=== PATIENT | female | born 1995 | race Caucasian/White ===

== ENCOUNTER 2017-11-26 11:24 | Emergency (ER) | payer BC ==
[2017-11-26 11:35] VITALS: RESP 16; O2SAT 98
--- NOTE | 2017-11-26 13:20 | EDPHY ---
H & P Stated Complaint: l lower abd/pelvic since started menstruation 3 days ago Time Seen by Provider: 11/26/17 13:20 HPI/ROS: HPI: This is a 22-year-old female who presents with Chief Complaint: l lower abd/pelvic since started menstruation 3 days ago Location: Suprapubic and left lower quadrant Quality: Cramping Pain Duration: 3 days Signs and Symptoms: no fever, no nausea, no vomiting, no hematemesis, no blood in stool, no abdominal bloating, no diarrhea, no back pain, no urinary symptoms , no vaginal discharge, no indigestion, no chest pain, no shortness of breath Timing: Acute, intermittent episodes Severity: Moderate to severe Context: Patient reports that she is currently menstruating, started approximately 3 days ago complains of menstrual cramping more prominent on the left side that is not relieved with ibuprofen, Tylenol. Heating pad does provide some mild relief. She takes oral control pills. Menses occurs every 28 days and approximate last 5 days. She reports that she is changing her pad every 3 hr and denies excessive blood flow. She denies chest pain/ shortness of breath/dizziness. She has not seen a OBGYN in over a year. No history of ovarian torsion/fibroids/ovarian cyst. Modifying Factors: See above Comment: ROS: see HPI Constitutional: No fever, no chills, no weight loss Eyes: No blurred vision Respiratory: No shortness of breath, no cough Cardiovascular: No chest pain, no palpitations Gastrointestinal: No nausea, no vomiting, no diarrhea, no hematemesis, no blood in stool Genitourinary: No dysuria, no blood in urine Extremities: No myalgias, no edema Neurologic: No weakness, no numbness Skin: No rashes, no petechiae Hematologic: No bruising, no bleeding MEDICAL/SURGICAL/SOCIAL HISTORY: Medical history: Generally healthy. Does not take any regular medications. Surgical history: Denies Social history: Student. CONSTITUTIONAL: Well-developed well-nourished young adult female who is nontoxic in appearance, awake and alert, no obvious distress HEENT: Atraumatic and normocephalic, PERRL, EOMI. Tympanic membranes clear. Oropharynx clear, no exudate and moist pink mucosa. Airway patent. No lymphadenopathy. No meningismus. Cardiovascular: Normal S1/S2, regular rate, regular rhythm, without murmur rub or gallop. PULMONARY/CHEST: Symmetrical and nontender. Clear to auscultation bilaterally. Good air movement. No accessory muscle usage. ABDOMEN: Soft, nondistended, left lower quadrant mild tenderness to deep palpation, no rebound, no guarding, no peritoneal signs, no masses or organomegaly. No CVAT. Normoactive bowel sounds heard x4. PELVIC: Deferred per patient as received ultrasound EXTREMITIES: 2/2 pulses, strength 5/5, no deformities, no clubbing, no cyanosis or edema. NEUROLOGICAL: no focal neuro deficits. GCS 15. SKIN: Warm and dry, no erythema. no rash. Good capillary refill. Source: Patient Exam Limitations: No limitations - Personal History LMP (Females 10-55): Now Current Tetanus/Diphtheria Vaccine: Yes - Medical/Surgical History Hx Asthma: No Hx Chronic Respiratory Disease: No Hx Diabetes: No Hx Cardiac Disease: No Hx Renal Disease: No Hx Cirrhosis: No Hx Alcoholism: No Hx HIV/AIDS: No Hx Splenectomy or Spleen Trauma: No Other PMH: denies - Social History Smoking Status: Current some day smoker Constitutional: Initial Vital Signs Temperature (C) 36.5 C 11/26/17 11:32 Heart Rate 74 11/26/17 11:32 Respiratory Rate 16 11/26/17 11:32 Blood Pressure 125/83 H 11/26/17 11:32 O2 Sat (%) 98 11/26/17 11:32 O2 Delivery Mode Room Air Allergies/Adverse Reactions: Penicillins Allergy (Verified 11/26/17 11:31) Home Medications: Medication Instructions Recorded Cyclobenzaprine [Flexeril 10 MG 10 mg PO TID PRN #15 tab 11/26/17 (*)] Protonix 11/26/17 Zantac 11/26/17 Medical Decision Making - Diagnostics Imaging Results: Imaging Impressions Pelvic/Renal Ultrasound 11/26/17 13:43 Impression: 1. Normal ovaries. No evidence of torsion or ovarian cyst. 2. Normal uterus. Findings discussed with Emergency Department physician, Nikole Patel on 2017, 14:51. ED Course/Re-evaluation: Labs, IV fluids, IV medications, pelvic ultrasound ordered Labs reviewed and show no signs of anemia/electrolyte imbalance/leukocytosis/ transaminitis Urinalysis shows blood but no signs of infection. Given 1 L normal saline, IV Toradol, IV promethazine, and p.o. Flexeril with adequate relief Called by Radiology who advised: Normal ovaries. No evidence of torsion or ovarian cyst. Normal uterus. Reassessed patient: Abdomen soft and nontender. No concern for hemorrhage. Advised supportive care. OBGYN follow-up. This patient was seen under the supervision of my primary supervising physician. I evaluated care for this patient independently. Differential Diagnosis: Abdominal pain in a female including but not limited to ovarian cyst, pelvic inflammatory disease, ovarian torsion, urinary tract infection, and appendicitis. - Data Points Laboratory Results: Laboratory Results 11/26/17 13:10 11/26/17 13:10 11/26/17 11/26/17 11/26/17 13:10 13:10 13:10 WBC 9.79 10^3/uL H 10^3/uL (3.80-9.50) RBC 4.31 10^6/uL 10^6/uL (4.18-5.33) Hgb 14.2 g/dL g/dL (12.6-16.3) Hct 42.2 % % (38.0-47.0) MCV 97.9 fL fL (81.5-99.8) MCH 32.9 pg pg (27.9-34.1) MCHC 33.6 g/dL g/dL (32.4-36.7) RDW 12.4 % % (11.5-15.2) Plt Count 253 10^3/uL 10^3/uL (150-400) MPV 10.7 fL fL (8.7-11.7) Neut % (Auto) 71.1 % % (39.3-74.2) Lymph % (Auto) 21.1 % % (15.0-45.0) Burnett % (Auto) 6.4 % % (4.5-13.0) Eos % (Auto) 0.8 % % (0.6-7.6) Baso % (Auto) 0.4 % % (0.3-1.7) Nucleat RBC Rel Count 0.0 % % (0.0-0.2) Absolute Neuts (auto) 6.95 10^3/uL H 10^3/uL (1.70-6.50) Absolute Lymphs (auto) 2.07 10^3/uL 10^3/uL (1.00-3.00) Absolute Monos (auto) 0.63 10^3/uL 10^3/uL (0.30-0.80) Absolute Eos (auto) 0.08 10^3/uL 10^3/uL (0.03-0.40) Absolute Basos (auto) 0.04 10^3/uL 10^3/uL (0.02-0.10) Absolute Nucleated RBC 0.00 10^3/uL 10^3/uL (0-0.01) Immature Gran % 0.2 % % (0.0-1.1) Immature Gran # 0.02 10^3/uL 10^3/uL (0.00-0.10) Sodium 142 mEq/L mEq/L (135-145) Potassium 4.0 mEq/L mEq/L (3.5-5.2) Chloride 106 mEq/L mEq/L (97-110) Carbon Dioxide 21 mEq/l L mEq/l (22-31) Anion Gap 15 mEq/L mEq/L (8-16) BUN 10 mg/dL mg/dL (7-23) Creatinine 0.7 mg/dL mg/dL (0.6-1.0) Estimated GFR > 60 Glucose 80 mg/dL mg/dL (70-100) Calcium 9.7 mg/dL mg/dL (8.5-10.4) Total Bilirubin 0.7 mg/dL mg/dL (0.1-1.4) Conjugated Bilirubin 0.3 mg/dL mg/dL (0.0-0.5) Unconjugated Bilirubin 0.4 mg/dL mg/dL (0.0-1.1) AST 26 IU/L IU/L (14-46) ALT 35 IU/L IU/L (9-52) Alkaline Phosphatase 91 IU/L IU/L (38-126) Total Protein 8.3 g/dL H g/dL (6.3-8.2) Albumin 4.7 g/dL g/dL (3.5-5.0) Lipase 107 IU/L IU/L (23-300) Beta HCG, Qual NEGATIVE Urine Color Urine Appearance Urine pH Ur Specific Horatio Urine Protein Urine Ketones Urine Blood Urine Nitrate Urine Bilirubin Urine Urobilinogen Ur Leukocyte Esterase Urine RBC Urine WBC Ur Epithelial Cells Urine Mucus Urine Glucose Urine Test 11/26/17 11/26/17 11:35 11:35 WBC RBC Hgb Hct MCV MCH MCHC RDW Plt Count MPV Neut % (Auto) Lymph % (Auto) Burnett % (Auto) Eos % (Auto) Baso % (Auto) Nucleat RBC Rel Count Absolute Neuts (auto) Absolute Lymphs (auto) Absolute Monos (auto) Absolute Eos (auto) Absolute Basos (auto) Absolute Nucleated RBC Immature Gran % Immature Gran # Sodium Potassium Chloride Carbon Dioxide Anion Gap BUN Creatinine Estimated GFR Glucose Calcium Total Bilirubin Conjugated Bilirubin Unconjugated Bilirubin AST ALT Alkaline Phosphatase Total Protein Albumin Lipase Beta HCG, Qual Urine Color YELLOW Urine Appearance CLEAR Urine pH 9.0 H (5.0-7.5) Ur Specific Horatio 1.016 (1.002-1.030) Urine Protein NEGATIVE (NEGATIVE) Urine Ketones TRACE H (NEGATIVE) Urine Blood 1+ H (NEGATIVE) Urine Nitrate NEGATIVE (NEGATIVE) Urine Bilirubin NEGATIVE (NEGATIVE) Urine Urobilinogen NEGATIVE EU EU (0.2-1.0) Ur Leukocyte Esterase NEGATIVE (NEGATIVE) Urine RBC 1-3 /hpf /hpf (0-3) Urine WBC NONE SEEN /hpf /hpf (0-3) Ur Epithelial Cells TRACE /lpf /lpf (NONE-1+) Urine Mucus 1+ /lpf /lpf (NONE-1+) Urine Glucose NEGATIVE (NEGATIVE) Urine Test NEGATIVE Medications Given: Discontinued Medications Cyclobenzaprine HCl (Flexeril) 10 mg PO EDNOW ONE Stop: 11/26/17 14:24 Last Admin: 11/26/17 14:35 Dose: 10 mg Sodium Chloride (Ns) 1,000 mls @ 0 mls/hr IV EDNOW ONE; Wide Open PRN Reason: Protocol Stop: 11/26/17 13:43 Last Admin: 11/26/17 14:22 Dose: 1,000 mls Ketorolac Tromethamine (Toradol) 30 mg IVP EDNOW ONE Stop: 11/26/17 13:43 Last Admin: 11/26/17 14:23 Dose: 30 mg Promethazine HCl (Phenergan) 12.5 mg IVP EDNOW ONE Stop: 11/26/17 13:43 Last Admin: 11/26/17 14:22 Dose: 12.5 mg Departure - Departure Disposition: Home, Routine, Self-Care Clinical Impression: Dysmenorrhea Condition: Good Instructions: Dysmenorrhea (ED) Additional Instructions: Take Tylenol 650 mg every 4 hours and/or Ibuprofen 600 mg every 8 hours with food as needed for pain. Using heating pad to reduce abdominal cramping. Take Flexeril every 8 hr as needed for cramping. Establish care with OBGYN and follow-up in 1-2 weeks to discuss dysmenorrhea. Referrals: [facility] [Other] - As per Instructions Candi Nieto MD [Medical Doctor] - As per Instructions Prescriptions: Cyclobenzaprine [Flexeril 10 MG (*)] 10 mg PO TID PRN #15 tab PRN Reason: Spasms
[2017-11-26] MEDS ORDERED: NS 1,000 ML IV ONE (13:42)
[2017-11-26] MEDS ORDERED: PROMETHAZINE HCL 25 MG/ML INJ IVP ONE (13:42)
[2017-11-26] MEDS ORDERED: KETOROLAC 30 MG/1 ML SDV IVP ONE (13:42)
[2017-11-26 13:49] LABS: PLATELET COUNT 253 10^3/uL (150-400)
[2017-11-26] MEDS ORDERED: CYCLOBENZAPRINE 10 MG TAB PO ONE (14:23)
[2017-11-26 15:55] VITALS: BP 112/72; PULSE 80; TEMP 97.9
== END 2017-11-26 15:54 | disposition home or self-care (01) ==
PROC: 3E0337Z Introduction of Electrolytic and Water Balance Substance into Peripheral Vein, Percutaneous Approach (ICD-10-PCS; principal; 2017-11-26)
DX: N94.6 Dysmenorrhea, unspecified (principal); F17.200 Nicotine dependence, unspecified, uncomplicated; E86.9 Volume depletion, unspecified
CPT/HCPCS: 96374; J1885; J2550

== ENCOUNTER 2018-09-07 17:55 | Inpatient (IN) | payer BC ==
--- NOTE | 2018-09-07 18:21 | EDPHY ---
H & P Stated Complaint: SI Time Seen by Provider: 09/07/18 18:17 HPI/ROS: HPI: This is a 23-year-old female who presents with Chief Complaint: Suicidal thoughts Location: psych Quality: Depression, suicidal thoughts Duration: Weeks Signs and Symptoms: no auditory hallucinations, no visual hallucinations, + suicidal ideation with a plan, no homicidal ideation, no paranoia Timing: Constant, worsening Severity: Moderate to severe Context: Patient is a student at [employer], originally from [place], presents at the urging of her friends and concern for her own well -being as she has had severe major depression that has been worsening over the last several weeks. She admits to excessive alcohol use as well as Ativan use. She does not have a prescription for Ativan. She has a history of anxiety and depression in the past but it is not prescribed any psychiatric medications. Patient reports that she does not feel safe to be alone. She reports that she is doing poorly in school, not getting along with her friends and boyfriend. Admits to marijuana use. Modifying Factors: None Comment: ROS: A comprehensive 10 system review of systems is otherwise negative aside from elements mentioned in the history of present illness. MEDICAL/SURGICAL/SOCIAL HISTORY: Medical history: Depression, anxiety. Last menstrual period was 1-2 weeks ago. Surgical history: Denies Social history: Student at [employer]. Denies tobacco use. Family history noncontributory. CONSTITUTIONAL: Meat, tidy, flat affect adult white female, awake and alert, no obvious distress HEENT: Atraumatic and normocephalic, PERRL, EOMI. Nares patent; no rhinorrhea; no nasal mucosal edema. Tympanic membranes clear. Oropharynx clear, no exudate and moist pink mucosa. Airway patent. No lymphadenopathy. No meningismus. Cardiovascular: Normal S1/S2, regular rate, regular rhythm, without murmur rub or gallop. PULMONARY/CHEST: Symmetrical and nontender. Clear to auscultation bilaterally. Good air movement. No accessory muscle usage. ABDOMEN: Soft, nondistended, nontender, no rebound, no guarding, no peritoneal signs, no masses or organomegaly. No CVAT. EXTREMITIES: 2/2 pulses, strength 5/5, no deformities, no clubbing, no cyanosis or edema. NEUROLOGICAL: no focal neuro deficits. GCS 15. SKIN: Warm and dry, no erythema. no rash. Good capillary refill. PSYCH: Poor eye contact, no flight of ideas, organized thought process, fair insight and judgment, no auditory hallucinations, no visual hallucinations, + suicidal ideation with a plan, no homicidal ideation, no paranoia Source: Patient, RN/MD Exam Limitations: No limitations - Personal History LMP (Females 10-55): 8-14 Days Ago Current Tetanus/Diphtheria Vaccine: Yes Current Tetanus Diphtheria and Acellular Pertussis (TDAP): Yes - Medical/Surgical History Hx Asthma: No Hx Chronic Respiratory Disease: No Hx Diabetes: No Hx Cardiac Disease: No Hx Renal Disease: No Hx Cirrhosis: No Hx Alcoholism: No Hx HIV/AIDS: No Hx Splenectomy or Spleen Trauma: No Other PMH: nose surgery - Social History Smoking Status: Current some day smoker Constitutional: Initial Vital Signs Temperature (C) 37.3 C 09/07/18 18:00 Heart Rate 72 09/07/18 18:00 Respiratory Rate 16 09/07/18 18:00 Blood Pressure 129/81 H 09/07/18 18:00 O2 Sat (%) 97 09/07/18 18:00 O2 Delivery Mode Room Air Allergies/Adverse Reactions: Penicillins Allergy (Verified 09/07/18 17:59) Home Medications: Medication Instructions Recorded Zantac 11/26/17 hydrOXYzine HCL 09/07/18 Medical Decision Making ED Course/Re-evaluation: 1820: Placed on M1 hold due to severe major depression and suicidal ideation with a plan. Labs and UDS ordered. 1840: Labs reviewed and grossly unremarkable. Urine drug screen positive for marijuana. Medically clear for mental health evaluation. 2225: Patient has been accepted at [address] [place] [address] Small[address] EMTALA form completed. This patient was seen under the supervision of my secondary supervising physician. I evaluated care for this patient independently. Discussed this patient with Dr. White. Differential Diagnosis: Differential diagnosis includes but is not limited to major depression, anxiety disorder, schizophrenia, bipolar disorder, intoxicant use, suicidal ideation, psychosis, cristobal. - Data Points Laboratory Results: Laboratory Results 09/07/18 18:19 09/07/18 18:19 09/07/18 09/07/18 09/07/18 18:30 18:30 18:19 WBC RBC Hgb Hct MCV MCH MCHC RDW Plt Count MPV Neut % (Auto) Lymph % (Auto) Isabela % (Auto) Eos % (Auto) Baso % (Auto) Nucleat RBC Rel Count Absolute Neuts (auto) Absolute Lymphs (auto) Absolute Monos (auto) Absolute Eos (auto) Absolute Basos (auto) Absolute Nucleated RBC Immature Gran % Immature Gran # Sodium 138 mEq/L mEq/L (135-145) Potassium 4.1 mEq/L mEq/L (3.3-5.0) Chloride 102 mEq/L mEq/L (97-110) Carbon Dioxide 26 mEq/l mEq/l (22-31) Anion Gap 10 mEq/L mEq/L (6-14) BUN 12 mg/dL mg/dL (7-23) Creatinine 0.8 mg/dL mg/dL (0.6-1.0) Estimated GFR > 60 Glucose 89 mg/dL mg/dL (70-100) Calcium 9.5 mg/dL mg/dL (8.5-10.4) Urine Test NEGATIVE Urine Opiates Screen NEGATIVE (NEGATIVE) Urine Barbiturates NEGATIVE (NEGATIVE) Ur Phencyclidine Scrn NEGATIVE (NEGATIVE) Ur Amphetamine Screen NEGATIVE (NEGATIVE) U Benzodiazepines Scrn NEGATIVE (NEGATIVE) Urine Cocaine Screen NEGATIVE (NEGATIVE) U Marijuana (THC) Screen NON-NEGATIVE H (NEGATIVE) Ethyl Alcohol < 10 mg/dL mg/dL (0-10) 09/07/18 18:19 WBC 8.65 10^3/uL 10^3/uL (3.80-9.50) RBC 4.55 10^6/uL 10^6/uL (4.18-5.33) Hgb 14.8 g/dL g/dL (12.6-16.3) Hct 44.3 % % (38.0-47.0) MCV 97.4 fL fL (81.5-99.8) MCH 32.5 pg pg (27.9-34.1) MCHC 33.4 g/dL g/dL (32.4-36.7) RDW 12.5 % % (11.5-15.2) Plt Count 261 10^3/uL 10^3/uL (150-400) MPV 10.3 fL fL (8.7-11.7) Neut % (Auto) 72.0 % % (39.3-74.2) Lymph % (Auto) 17.3 % % (15.0-45.0) Isabela % (Auto) 9.2 % % (4.5-13.0) Eos % (Auto) 1.0 % % (0.6-7.6) Baso % (Auto) 0.3 % % (0.3-1.7) Nucleat RBC Rel Count 0.0 % % (0.0-0.2) Absolute Neuts (auto) 6.21 10^3/uL 10^3/uL (1.70-6.50) Absolute Lymphs (auto) 1.50 10^3/uL 10^3/uL (1.00-3.00) Absolute Monos (auto) 0.80 10^3/uL 10^3/uL (0.30-0.80) Absolute Eos (auto) 0.09 10^3/uL 10^3/uL (0.03-0.40) Absolute Basos (auto) 0.03 10^3/uL 10^3/uL (0.02-0.10) Absolute Nucleated RBC 0.00 10^3/uL 10^3/uL (0-0.01) Immature Gran % 0.2 % % (0.0-1.1) Immature Gran # 0.02 10^3/uL 10^3/uL (0.00-0.10) Sodium Potassium Chloride Carbon Dioxide Anion Gap BUN Creatinine Estimated GFR Glucose Calcium Urine Test Urine Opiates Screen Urine Barbiturates Ur Phencyclidine Scrn Ur Amphetamine Screen U Benzodiazepines Scrn Urine Cocaine Screen U Marijuana (THC) Screen Ethyl Alcohol Departure - Departure Disposition: [facility] IP Clinical Impression: Depression with suicidal ideation Condition: Fair
[2018-09-07 18:28] LABS: PLATELET COUNT 261 10^3/uL (150-400)
[2018-09-07] MEDS ORDERED: LORazepam 0.5 MG TAB PO PRN (23:05)
[2018-09-07] MEDS ORDERED: MAG HYDROX/AL HYDROX/SIMETH 30 ML UDCUP PO PRN (23:05)
[2018-09-07] MEDS ORDERED: ACETAMINOPHEN 325 MG TAB PO PRN (23:05)
[2018-09-07] MEDS ORDERED: MAGNESIUM HYDROXIDE 30 ML UDCUP PO PRN (23:05)
[2018-09-07] MEDS ORDERED: NICOTINE POLACRILEX 2 MG GUM B PRN (23:05)
[2018-09-07] MEDS ORDERED: OLANZapine DISINTEGR 5 MG TAB PO PRN (23:05)
--- NOTE | 2018-09-08 00:18 | ASMTTLCEVL ---
TLC Evaluation - Basic Information Evaluation Start Date and 09/07/2018 07:40 PM Time Hospital Status Answers: M1 Hold 72-hr M1 Hold Start Date 09/07/2018 06:20 PM and Time Patient statement Notes: I wanted to kill myself. Narrative Notes: Pt is a 23 year old female who presented to [facility] at the encouragement of her roommates. Pt complains of worsening depression and increased suicidal thoughts with a plan to overdose on her pills. Pt states, Its just a bundle of things. I keep getting rejected by guys, I had an argument with my friend and Im not doing as well in school. Pt stated recently the boy she was dating started liking a friend of hers. Pt stated she has had suicidal thoughts in the past when she has been rejected by a ambreen she was dating. Pt reported she has been feeling depressed with SI off and on for the past 3 years. Pt stated she had developed a plan and stated, I was gonna take pain killers, anything I could find really, Xanax, take a bunch of them and not wake up. 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 Last night, pt text her stating that she was on the verge of taking a lot of pills. Larissa stated she and pt spoke for a while and pt seemed better but the next day one of their other friends stated pt mentioned, I was really close to taking all my pills. Larissa stated she and pt.s other roommate took pts. medication and hid it from pt and they told her they did this, then encouraged pt to come to the hospital. Diagnosis History Notes: Pt stated she was dx with depression. Prior suicide attempts Notes: Pt denied any prior suicide attempts. Prior hospitalizations Notes: None reported. Treatment Responses Notes: N/A History of violence Notes: Pt denied wanting to harm others. Therapist: Patience at [facility] Medications (name, dosage, route, freq uency) Notes: Hydroxyzine (dose unk) Allergies/Reaction Notes: Penicillin. Sleep Notes: Pt stated she has a hard time falling asleep because my mind is racing. Appetite Notes: Wnl. Medical/Surgical history Notes: None Substance use history (frequency, intensity, his tory, duration) Notes: Pt stated she drinks every weekend and sometimes during the week. Pt reports she also uses Xanax approx. once a week and stated, I should quit using Xanax because it messes up my mood. I always wake up depressed the next day. Pt reports she also occasionally uses cocaine and uses THC once a day. Utox was positive for marijuana and bal was.0 Family composition Notes: Pts parents live in [place]. Pt has a 14 year old brother. Pt reports having a close relationship with her family Family psychiatric/substance abuse history Notes: Pt reported her maternal aunt is bipolar and stated she believes her maternal uncle is maybe a sociopath. She stated, He doesnt feel any emotion and my mom is always trying to get him to go to the doctor but he wont go. Developmental history Notes: Pt grew up in [place]. Pt stated My childhood was pretty happy with my immediate family. Pt denied any concussions. Pt denied any childhood abuse. Abuse concerns Answers: None Marital status/children Notes: Unmarried, no children. Living situation Notes: Pt lives in [place] with 2 roommates who are also her close friends. Sexual history/orientation Notes: Heterosexual Peer support/family strengths Notes: Pt reports having a good support system. Pts childhood best friend moved to [place] with her and also attends [employer]. 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 Pt stated she is not doing as well as she would like and sated she believes she has failed some classes. Work history Notes: Pt is not working. Notes: None reported. Legal Notes: Pt denied any legal problems. Anabaptist/Spiritual Notes: None that would interfere with tx. Leisure Notes: Drawing, painting and outdoor activities. Collateral Notes: Friend-Larissa Patient's strengths Answers: Artistic/Creative/Musical (Please select at least TWO strengths): Athletic Insightful Intelligent Motivated for Treatment Willingness TLC Evaluation - Mental Status Exam Appearance: Answers: Appropriate Eye Contact: Answers: Intermittent Mood: Answers: Depressed Affect: Answers: Flat Behavior: Answers: Cooperative Fatigued Speech: Answers: Relevant Logical Clear Coherent Thought Process: Answers: Organized Oriented Alert Intact Insight: Answers: Good Judgement: Answers: Poor Depression Answers: Flat Affect Signs/Symptoms: Hopelessness Sad Mood Anxiety Signs/Symptoms Answers: Generalized Anxiety Hallucinations: Answers: None Pt reported to have Answers: No suicidal/self-injuring ideation/behavior? Pt reported to be making Answers: Yes suicidal/self-injuring threats? Pt reported to have Answers: No aggression/assault ideation/behavior? Pt reported to be making Answers: No aggression/assault threats? Pt exhibits inability to Answers: No care for self/grave disability? Ideation/behavior is Answers: Yes chronic? Patient has a specific Answers: Yes plan? Pt has access to means to Answers: Yes execute the plan? Ideation has Answers: No delusional/hallucinatory content? History of Answers: No suicidal/self-injuring ideation, behavior, or threats? History of Answers: No aggressive/assaultive ideation, behavior, or threats? History of serious Answers: No physical harm to self/others while in treatment setting? TLC Evaluation - Suicide/Homicide Risk Suicide Risk Factors: Answers: < 20 or > 40 Years of Age Alcohol/Heavy Drug Use Flat Affect Hopelessness Major Depression School Difficulties Homicide/violence risk Answers: None factors: Current Suicidal Answers: Yes Ideation? Current Suicidal Ideation Answers: Yes in the Past 48 Hours? Current Suicidal Ideation Answers: Yes in the Past Month? Current Suicidal Answers: Yes Ideation, Worst Ever? Suicide Internal Answers: Absence of Psychosis Protective Factors: Suicide External Answers: Social Support Protective Factors: Other Notes: Family Ranking of patient's Answers: Severe suicidal risk: Ranking of patient's Answers: Low homicidal risk: TLC Evaluation - Wrap-up AXIS I Diagnosis (include DSM-V and ICD-10 codes), must also be entered in [employer], which is the source of truth. Notes: Major Depressive Disorder, single episode, severe 296.23 (F32.2) Cannabis Use Disorder, moderate 304.30 (F12.20) Evaluation End Date and 09/08/2018 12:15 AM Time (HH:AFSHAN): Date Signed: 09/08/2018 12:17 AM Electronically Signed By:Evelia Segal
--- NOTE | 2018-09-08 00:19 | ASMTTCLDSP ---
TLC Discharge Disposition Discharge Concerns/Recommendations: Notes: In consultation with [facility] ED physician, Kodi White MD and on-call psychiatrist, Gareth Sheppard MD, both concurred that pt appears to meet 27-65 criteria requiring psychiatric hospitalization as pt appears to be at risk of harm to self due to a mental illness condition. Pt was given the 3[facility] prohibited belongings list while in the ED. Was patient given the Answers: Yes Inpatient Behavioral Health Prohibited Belongings List while in the ED? For inpatient Gareth Sheppard MD admission, the following psychiatrist agreed to accept patient for admission to Behavioral Health ([facility]): Date Signed: 09/08/2018 12:18 AM Electronically Signed By:Evelia Segal
--- NOTE | 2018-09-08 08:17 | ASMTBHMTP ---
Master Treatment Plan Master Treatment Plan Answers: Depressed Mood with for: Suicidal Ideation Date: 09/07/2018 Diagnosis on Admission: Major Depressive Disorder, Single Episode, Severe 296.23 (F32.2) Expected length of stay: 3-5 days Reason for admission: Notes: Per Report: Pt is a 23 year old female who presented to [facility] at the encouragement of her roommates. Pt complains of worsening depression and increased suicidal thoughts with a plan to overdose on her pills. Pt states, Its just a bundle of things. I keep getting rejected by guys, I had an argument with my friend and Im not doing as well in school. Pt stated recently the boy she was dating started liking a friend of hers. Pt stated she has had suicidal thoughts in the past when she has been rejected by a abmreen she was dating. Pt reported she has been feeling depressed with SI off and on for the past 3 years. Pt stated she had developed a plan and stated, I was gonna take pain killers, anything I could find really, Xanax, take a bunch of them and not wake up. This entry writer spoke with her friend and roommate of 2 years Larissa, who stated she has noticed pt has been more depressed for the past couple weeks but it has gotten worse in the past few days. Last night, pt text her stating that she was on the verge of taking a lot of pills. Larissa stated she and pt spoke for a while and pt seemed better but the next day one of their other friends stated pt mentioned, I was really close to taking all my pills. Larissa stated she and pt.s other roommate took pts. medication and hid it from pt and they told her they did this, then encouraged pt to come to the hospital. Patient's stated presenting problems: Notes: "I wanted to kill myself and needed professional help." Patient's goals for treatment: Notes: understand myself-learn to emotional regulation Patient's strengths: Notes: art Identify supports outside of hospital: Notes: family and friends Discharge criteria: Notes: Suicidal Ideation will resolve and patient will have a plan to safely manage recurrent suicidal ideation. Initial disposition plan/considerations: Notes: "return back home to my apartment in [place], [place] and return to school.* Master Treatment Plan Required Signatures Psychiatrist signature: Answers: Psychiatrist: RN on-shift signature: Answers: RN: Patient signature: Answers: Patient: Date Signed: 09/08/2018 08:16 AM Electronically Signed By:Estuardo Diaz
--- NOTE | 2018-09-08 13:32 | BAPA ---
DATE OF SERVICE: 09/08/2018 CHIEF COMPLAINT: "Having suicidal thoughts and I wanted immediate professional help, so I went to the hospital." HISTORY OF PRESENT ILLNESS: From the ED note dated 09/07/2018, the patient a student at [employer], originally from [place], presented to the ER at the urging of her friends and concern for her own well-being, as she had severe major depression that was worsening over the last several weeks. The patient admitted to excessive alcohol use, as well as Ativan use. The patient reports she did not feel safe alone, reported stressors including doing poorly in school, not getting along with her friends and boyfriend. The patient admitted to marijuana use. From the [facility] report dated 09/07/18, patient reported worsening depression and increased suicidal thoughts with plan to overdose on her pills. The patient was admitted involuntarily and is on an M1 hold due to being a danger to herself and is hospitalized for safety, crisis stabilization and medication evaluation. The patient describes to this NEUROSURGERY SPINE PHYSICIAN circumstances that led to current hospitalization as not doing well in school. The patient reports she is disappointed in herself, as she is not doing very well in the core classes for her career choice. The patient reports she recently got into a " big fight" with her friend and reports that she is currently seeing a ambreen that she feels does not like her as much as she likes him and the patient reports this is also stressful for her. The patient reports to this NEUROSURGERY SPINE PHYSICIAN current mental health illness as depression. The patient states to this NEUROSURGERY SPINE PHYSICIAN current alcohol and /or substance abuse that contributed to current hospitalization as none. The patient describes to this NEUROSURGERY SPINE PHYSICIAN current psychiatric symptoms as "a little anxious. " The patient reports recent history of anxiety that patient reports comes in "waves." The patient reports feeling excessive anxiety and worry. Reports she finds it difficult to control her worry during these times. Reports symptoms of feeling restless and keyed up, difficulty concentrating, mind going blank. The patient reports she at times feels irritable and at times experiences sleep disturbance. The patient describes no history or current abuse or trauma. The patient denies other psychiatric symptoms including symptoms of cristobal, ADHD, OCD , PTSD, psychosis, and any other symptom of psychiatric disorder The patient describes to this NEUROSURGERY SPINE PHYSICIAN current psychiatric symptoms are impacting managing her day-to-day life described as attending to household responsibilities without any difficulty. Patient reports she lives with roommates and gets along well with the roommates. The patient reports she is currently a full-time student and is not working. With regard to social functioning, the patient reports she is socializing well and that reports her social functioning is going "good." The patient reports she gets along well with her family and her family is very supportive. The patient reports her schooling is currently not going well. Reports that she is feeling stressed due to getting poor grades. The patient reports several hobbies including drawing, painting, skateboarding, snowboarding, and going to concerts. The patient reports she is generally satisfied with her life. The patient denies current suicidal ideation and reports protective factors or reasons to live as her family, friends and living in [place], [place]. 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 The patient reports main support network as her family and friends. The patient denies current homicidal ideation and denies current self-injurious ideation. The patient reports both medication management and therapy through [employer] [facility]. PAST PSYCHIATRIC HISTORY: The patient describes to this NEUROSURGERY SPINE PHYSICIAN the following psychiatric history. The patient reports a past diagnosis of depression and reports she has taken hydroxyzine for insomnia in the past and reports that she just takes this medication as needed. The patient reports no other past psychotropic medication trials. The patient reports no history of inpatient psychiatric hospitalization. The patient denies any history of withdrawal from drugs or alcohol. The patient denies history of suicide attempts. The patient reports no history of self-injurious behavior. ALLERGIES: Penicillins. CURRENT MEDICATIONS: At the time of admission, the patient was on no scheduled psychotropic medications. PAST MEDICAL HISTORY: The patient describes to this NEUROSURGERY SPINE PHYSICIAN the following. The patient reports she has no reason to believe she could be . Reports she is currently not on any form of control. Urine test on 09/2018 was negative. The patient denies any neurological history. Denies history of major illnesses and denies history of major hospitalizations. SOCIAL HISTORY: The patient describes to this NEUROSURGERY SPINE PHYSICIAN the following social history. The patient reports she was born in [place] and raised the majority of her life in [place] by both parents. The patient reports she currently lives in [place], [place], with 2 roommates. The patient describes meeting all her developmental milestones and reports no learning delays or difficulties. The patient describes her sexual orientation as bisexual. Reports she is currently not in a relationship, has never been , has no children. The patient is currently a full-time student at [employer]. The patient reports highest level of education as a jerrod in college. The patient reports no history of duty, no mormonism or spiritual practice and reports no current or history of legal issues. SUBSTANCE USE HISTORY: The patient describes to this NEUROSURGERY SPINE PHYSICIAN the following substance use history. The patient reports she drinks approximately 4 times per week and drinks 3 drinks per occasion. The patient reports she uses marijuana daily. The patient reports using cocaine twice a week and has been using cocaine since her freshman year. The patient reports no history of crack or heroin use. The patient reports she has used stimulant prescription medications in the past such as Adderall and Ritalin for focusing while studying. The patient reports a history of using LSD and mushrooms and reports frequency of use about once or twice a year. Patient reported excessive alcohol and Ativan use during ER evaluation. SUBSTANCE ABUSE BRIEF INTERVENTION: Brief intervention regarding the risks of alcohol, cannabis, cocaine, and hallucinogen abuse is provided to patient with goal to reduce the risk of harm that could result from the continued use of alcohol, cannabis, cocaine, and hallucinogens with the general aim to investigate the problem, raise awareness of problem, develop a solution with the patient, recommend a specific change or activity, and motivate the patient toward change. Assess substance abuse behavior and give supportive advice about harm reduction, recommend a reduction in hazardous/at-risk consumption patterns, and facilitate referrals for additional specialized treatment with foster care social worker. Intermediate goal is for the patient to quit and attend outpatient substance abuse treatment . Intervention focus on intermediate goals to allow for more immediate success in the treatment process to keep the patient motivated. Review following with patient: Cannabis use risks: Short- term use: impaired short-term memory, impaired motor coordination, altered judgement, in high doses paranoia and psychosis. Long-term use addiction, diminished life satisfaction and achievement, symptoms of chronic bronchitis, and increased risk of chronic psychosis disorders if predisposition to such disorders. In withdrawal anger, aggression irritability, anxiety and nervousness, decreased appetite or weight loss, restlessness, and sleep difficulties with strange dreams. Alcohol/Binge Drinking risks: short-term: injuries, violence, alcohol poisoning, risky sexual behaviors. Long-term: high blood pressure, stroke, liver disease, digestive problems, cancer, learning and memory problems, depression and anxiety, social problems, and alcohol dependence. Cocaine use risks: Short-term: erratic and violent behavior, panic attacks, paranoia, psychosis; heart rhythm problems, heart attack; stroke, seizure, coma. Long-term: Loss of sense of smell, nosebleeds, nasal damage and trouble swallowing from snorting; infection and of bowel tissue from decreased blood flow; poor nutrition and weight loss; lung damage from smoking. Hallucinogen use risks: paranoia, psychosis, speech problems, memory loss, weight loss, anxiety, and depression and suicidal thoughts. OUTPATIENT SUBSTANCE ABUSE TREATMENT: Patient referred to outpatient provider and treatment for continued treatment related to substance abuse. FAMILY PSYCHIATRIC HISTORY: The patient describes to this NEUROSURGERY SPINE PHYSICIAN the following family psychiatric history. The patient reports family history of mental illness as her maternal aunt was diagnosed with bipolar disorder. The patient denies any family history of suicide or suicide attempts. The patient reports family history of substance use as her paternal uncle abused cocaine and her maternal aunt abused OxyContin. ADMISSION LABS AND STUDIES: CBC from 09/07/2018 was within normal limits. BMP from 09/07/2018, within normal limits. Hemoglobin A1c from 09/07/2018, within normal limits at 4.8. Liver function from 09/07/2018, within normal limits except total protein was elevated at 8.3. Lipid panel from 09/07/2018, within normal limits, except triglycerides were elevated at 218, LDL cholesterol calculated was low at 45, VLDL cholesterol was elevated at 44, non-HDL cholesterol was low at 89, HDL cholesterol was elevated at 108. LDL/HDL ratio was low at 0.42. TSH from 09/07/2018, within normal limits at 1.640. Urine test from 09/07/2018, was negative. Toxicology screen from 2017 was negative for marijuana, negative for all other substances screened and negative for ethyl alcohol. MENTAL STATUS EXAM: MSE: The patient presents casually dressed and with good hygiene, and looks stated age. Patient is sitting, posture is upright, and position is relaxed. Patient appears awake, alert, and responds appropriately and reasonably during interview. Patient is engaged, relates well to interviewer, and emotional facial expression is appropriate to situation and changes appropriately with topic. Patient is cooperative, makes comfortable eye contact, and movements are voluntary, deliberate, coordinated, and smooth and even with no inappropriate movements. Patient makes laryngeal sounds effortlessly and shares conversation appropriately; pace of conversation is appropriate, and stream of talking is fluent; articulation is clear and understandable; word choice is effortless and appropriate for education level; completes sentences, occasionally pausing to think; rate and volume are appropriate for interview and setting. Patient reports mood as anxious. Patients affect is stable with full variable range, congruent with mood, and appropriate to speech and circumstances. Patient has linear and logical thinking, with no loose associations, tangential thought, thought blocking, concrete thinking, or any other signs of formal thought disorder. Patient denies suicidal and homicidal ideation, and denies hallucinations and delusions. Patient appears to be a reliable historian with sound judgement and good insight into current condition. Patient has no apparent dysfunction in recent or remote memory noted, and no evidence of gross cognitive dysfunction noted at any point during the interview. DIAGNOSES: Based on the patient's history and current presentation, patient's diagnoses: 1. Major Depressive Disorder, Severe, with Anxious Distress. 2. Adjustment disorder. 3. Stimulant use disorder. 4. Cannabis use disorder, moderate dependence. 5. Cocaine abuse. 6. Alcohol use disorder, moderate is suspected 7. Benzodiazepine abuse is suspected FORMULATION: The patient is a 23-year-old female, single, full-time student at [employer], living with roommates in [place], [place], who presents to the hospital involuntarily due to risk to harm herself and is currently on an M1 hold. The patient requires continued inpatient care because of recent reports of worsening depression, increasing suicidal ideation with plan to overdose on her medications. The patient presents with problems of increased depression that has steadily been increasing over the past several weeks. The patient's life has been affected by these problems including increased mood instability and suicidal ideation with plan to overdose. The exacerbation of symptoms was preceded by several stressors including school stressors, relationship stressors. Patient reports a past psychiatric history of depression and reports no history of psychiatric treatment. The patient is a high suicide safety risk due to recent suicidal ideation with plan to overdose. Protective factors while hospitalized include ongoing safety checks, active involvement in treatment, and support from our treatment team. The patient could benefit from inpatient hospitalization for safety, crisis stabilization and medication evaluation. PLAN: 1. Psychotropic medications: After reviewing options, risks and benefits with the patient, the patient agrees to sertraline 50 mg p.o. daily for anxiety. No other medication changes at this time as more time is needed to determine ongoing tolerability and efficacy. Plan is to continue to observe patient for response and side effects from medications, and ongoing monitoring and evaluation. 2. Review with patient informed consent and recommendations for psychotropic medication treatment listed below. 3. Labs: no additional labs at this time. 4. Therapy: continue milieu and group therapy. 5. Further investigation including gathering information from patients relatives and review of past case records to inform treatment plan. 6. Safety/Wellness plan and follow-up outpatient appointments to be established prior to discharge. Next steps are for patient to meet with palliative care specialist to plan a safe. discharge plan and establish outpatient services for ongoing treatment. 7. Confer with inpatient treatment team regarding treatment plan. 8. Address psychosocial stressors by meeting with foster care social worker to establish discharge plan including referrals for outpatient services. 9. Legal status: M1 hold. 10. Consider discharge on if patient is in stable condition, safe, and has a safe discharge plan. 11. Substance abuse interventions: alcohol, cannabis, benzodiazepine, cocaine, hallucinogens, and stimulants 12. Family meeting after evaluation and prior to discharge with patients parent( s). ESTIMATED LENGTH OF STAY: 1-3 days PSYCHOTROPIC MEDICATION TREATMENT INFORMED CONSENT and RECOMMENDATIONS: Review nature of condition, diagnosis, and prognosis. Review nature and purpose of psychotropic medication treatment. Review type of psychotropic medications being ordered. Review risk and benefits of psychotropic medication treatment. Review probable length of time will need to take medications. Review risk and benefits of not undergoing psychotropic medication treatment. Review alternative treatments to psychotropic medications. Review psychotropic medications contraindications, drug-drug interactions, side effects, and importance of reporting any side effects to a psychiatric provider or nurse during inpatient hospitalization, and upon discharge to patients psychiatric outpatient provider, primary care provider, or other health care assistant. Review importance of asking a nurse, psychiatric provider, or primary care provider any questions or problems concerning the psychotropic medications. Verify patient understands the information that has been provided, and understands, accepts, and agrees to psychotropic medications. Review patients safety plan and importance of patient to communicate to staff while hospitalized if patient is ever a danger to self/others, or unable to care for self, and upon discharge, the importance for patient to contact [facility] or [facility], or go to the nearest emergency room, if patient is ever a danger to self/others, or unable to care for self. Recommend that upon discharge patient establish medication management treatment with a psychiatric provider, establishes routine therapy appointments, and follow-up with primary care provider. Verify patient understands and agrees to these recommendations. /[id number]/MODL MTDD
--- NOTE | 2018-09-08 14:38 | ASMTCMCOM ---
CM Note CM Note Notes: See below email to [facility] staff regarding client's current state: Quique Hernández, Client is projected to discharge tomorrow and minimizes her substance use issues; which consist of heavy drug use on a semi-frequent basis. She was in possession with a "large bag," of white powder. [facility] security had to report this to [facility], the powder tested positive for cocaine. The police arrived to test and dispose of the drug. There are no charges that I am aware of. Client presents as semi-alert, depressed look, poor eye contact and restricted affect. Client would benefit from more treatments than most post-hospitalizations due to extensive depressive feelings/mood (3+ years), impulsive nature(s), lack of health boundaries, lack of clinical insight into her mental health issues as well as her denial of any substance use disorders. I would recommend that client be seen twice weekly if possible for the first two or three weeks (post-hospitalization), then taper down to once a week, later to once a month, etc. Client suggests she still would like to participate in school this semester, etc. I provided her with student support and case management information, etc. Date Signed: 09/08/2018 02:37 PM Electronically Signed By:Estuardo Diaz
[2018-09-08] MEDS: SERTRALINE HCL 50 MG TAB PO SCH (14:48)
--- NOTE | 2018-09-08 19:29 | BCON ---
INTERNAL MEDICINE CONSULTATION DATE OF CONSULTATION: 09/08/2018 REFERRING PHYSICIAN: Gareth Sheppard MD REASON FOR REFERRAL: Medical clearance for inpatient behavioral health stay. HISTORY OF PRESENT ILLNESS: This patient came to the emergency department, brought in by friends out of concern for major depression. She reported that she did not feel safe at home, that she was doing poorly at school, and not getting along with her friends or her boyfriend. She was evaluated by the mental health team, and admitted for further psychiatric care. She is currently without any acute complaints. PAST MEDICAL HISTORY: She denies any history of any medical illnesses. PAST SURGICAL HISTORY: She had a nasal septoplasty in March of this year. MEDICATIONS: She was taking occasional Zantac and hydroxyzine. The emergency department note refers to the use of lorazepam without prescription. ALLERGIES: There is an allergy listed to penicillin. SOCIAL HISTORY: She is a student at the [employer], studying graphic design. She is a tobacco smoker, also uses marijuana and alcohol. FAMILY HISTORY: Noncontributory. REVIEW OF SYSTEMS: Last menstrual period was 1-2 weeks ago. She denies pain, fevers, chills, weight change, cough, dyspnea, nausea, vomiting, constipation, diarrhea, dysuria, or urinary frequency. Otherwise, a 10-point review of systems is negative. PHYSICAL EXAM: VITAL SIGNS: Blood pressure yesterday evening was 128/83, heart rate was 71, respiratory rate was 14, oxygen saturation was 95% on room air, temperature was 36.9 degrees centigrade, her weight was 49.9 kg, for a body mass index of 19.5. GENERAL: This is a well-nourished, well-developed woman, dressed in street clothes, in no acute distress. HEENT: Extraocular movements are intact. Pupils are equal, round, reactive to light. Mucous membranes are moist. Dentition is in good condition. She has an uncrowded airway, Mallampati class 1. NECK: Supple. HEART: Regular rate and rhythm, with no murmurs, rubs, or gallops. LUNGS: Clear to auscultation bilaterally. ABDOMEN: Benign. EXTREMITIES: There is no cyanosis, clubbing, or edema. NEUROLOGIC: She is alert and oriented x3. Cranial nerves 2-12 are grossly intact. There is no focal weakness. Sensation is intact to light touch. Gait is within normal limits. LABORATORY STUDIES: From the emergency department: CBC was entirely within normal limits. Serum chemistry revealed normal renal function and electrolytes. Hemoglobin A1c was normal at 4.8. Liver functions were normal, but for an elevated total protein of 8.3. Lipid panel revealed elevated triglycerides at 218, normal cholesterol at 197, a low LDL at 45, and a high HDL at 108. TSH was normal at 1.64. Urine test was negative. Toxicology screen in the serum was negative for ethyl alcohol. Urine was not negative for marijuana, but was negative for other substances of abuse. ASSESSMENT AND RECOMMENDATIONS: 1. Mental health issues: Pending further evaluation and management per Psychiatry and the mental health team. 2. Tobacco dependence syndrome: Advised smoking cessation. 3. Polysubstance abuse: Including cannabis, alcohol, and lorazepam. She might benefit from specific substance abuse counseling. I see no medical contraindications to this patient's continued stay on the inpatient behavioral health unit, or to any psychiatric medications or procedures. Thank you very much for including me in the care of this patient and please do not hesitate to contact me or the hospitalist service, should there be need for further medical evaluation. /[id number]/MODL MTDD
--- NOTE | 2018-09-09 07:47 | ASMTBHDC ---
Notes Note: Notes: CC was able to confirm client's planned discharge follow up appts: Follow up with: [facility]: [address] [address] [place] [address] Next Appt: with Yanely Villanueva on 09/10/18 at 11am. (Post-Hospital Check In) Next Med Appt: with Claudia Lovelace (PMHNP), on FridaySeptember 14 (09/14/18) at 10am. (Please note, if you plan to be out of town please advise staff). Date Signed: 09/09/2018 07:46 AM Electronically Signed By:Estuardo Diaz
[2018-09-09] MEDS: SERTRALINE HCL 50 MG TAB PO SCH (09:28)
--- NOTE | 2018-09-09 14:26 | SOAPPROG ---
SOAP Progress Note Assessment/Plan: Assessment: Major Depressive Disorder, Severe, with anxious distress; Cannabis Use Disorder , Moderate; Cocaine Use Disorder, Alcohol Use Disorder and Benzodiazepine Use Disorder Suspected. Improvement noted. (see subjective/objective note). Patient could benefit from continued inpatient hospitalization for crisis stabilization, safety, and medication evaluation. Patient could benefit from IOP treatment, substance abuse treatment, therapy, and medication management after discharge and ed case manager to establish referrals and appointments prior to discharge. Plan: 1. Psychotropic medications: After reviewing options, risks, and benefits patient agrees to continue current medications. No medication changes at this time as more time is needed to determine ongoing tolerability and efficacy. Plan is to continue to observe patient for response and side effects from medications, and ongoing monitoring and evaluation. 2. Review with patient informed consent and recommendations for psychotropic medication treatment listed below 3. Labs: no additional labs at this time. 4. Therapy: continue milieu and group therapy 5. Further investigation including gathering information from patients relatives and review of past case records to inform treatment plan. 6. Safety/Wellness plan and follow-up outpatient appointments to be established prior to discharge. Next steps are for patient to meet with respiratory care technician to plan a safe discharge plan and establish outpatient services for ongoing treatment. 7. Confer with inpatient treatment team regarding treatment plan. 8. Psychosocial stressors addressed through case management. 9. Legal status: M1 hold 10. Consider discharge on if patient is in stable condition, safe, and has a safe discharge plan. 11. Substance abuse interventions: cannabis, alcohol, cocaine, benzodiazepines, and hallucinogens PSYCHOTROPIC MEDICATION TREATMENT INFORMED CONSENT and RECOMMENDATIONS: Review nature of condition, diagnosis, and prognosis. Review nature and purpose of psychotropic medication treatment. Review type of psychotropic medications being ordered. Review risk and benefits of psychotropic medication treatment. Review probable length of time patient will need to take medications. Review risk and benefits of not undergoing psychotropic medication treatment. Review alternative treatments to psychotropic medications. Review psychotropic medications contraindications, drug-drug interactions, side effects, and importance of reporting any side effects to a psychiatric provider or nurse during inpatient hospitalization, and upon discharge to patients psychiatric outpatient provider, primary care provider, or other health health and social care teacher. Review importance of asking a nurse, psychiatric provider, or primary care provider any questions or problems concerning the psychotropic medications. Verify patient understands the information that has been provided, and understands, accepts, and agrees to psychotropic medications. Review patients safety plan and importance of patient to report to staff while hospitalized if patient is ever a danger to self/others, or unable to care for self, and upon discharge, the importance for patient to contact [facility] or [facility], or go to the nearest emergency room, if patient is ever a danger to self/others, or unable to care for self. Recommend that upon discharge patient establish medication management treatment with a psychiatric provider, establishes routine therapy appointments, and follow-up with primary care provider. Verify patient understands and agrees to these recommendations. 09/09/18 14:26 Subjective: Following up with patient for evaluation of depression, anxiety, and safety. Patient reports, "Doing well." Patient expresses the following psychiatric symptoms none. Patient reports taking medications as prescribed, and describes response to medications as good. Patient does not report undesirable side effects from the medications, and agrees to continue current medications. Patient describes getting 9 hours of sleep. Objective: Vital Signs Temp Pulse Resp BP Pulse Ox 36.7 C 80 16 129/69 H 96 09/09/18 06:00 09/09/18 06:00 09/09/18 06:00 09/09/18 06:00 09/09/18 06:00 NURSING REPORT: Consulted with nursing for update on patients progress in treatment. Nurses report patient is engaged in treatment, is attending groups, slept 8 hours, expresses the following psychiatric symptoms: mild anxiety, exhibits the following psychiatric symptoms: flat affect; is eating all meals, is agreeable to medications and taking as prescribed with no report of side effects, with no s/s of EPS/akathisia, and denies SI/HI, denies A/V hallucinations, and denies delusions. TALEND ETL DEVELOPER UPDATE: referrals and appointments for outpatient substance abuse treatment, therapy, and medication management. Patient has appointment tomorrow at 1100 at . FAMILY MEETING: family meeting with patients mother yesterday after evaluation. MOC agrees with treatment plan. Family meeting scheduled with patients parent (s) today prior to discharge. Patient to discharge tomorrow at 0900 and has requested family meeting with her mother and father today. FAMILY MEETING WITH PATIENTS PARENTS AT PATIENTS REQUEST: this CHEMISTRY QUALITY CONTROL ANALYST met with patient and patients parents by conference call at patients request to discuss discharge plan. Patients parents agree with discharge plan and agree patient is safe to discharge tomorrow at 0900 and with follow-up appointment at at 1100. TREATMENT PLANNING MEETING: Patient met with treatment team to review discharge plan. Substance use treatment was recommended. MSE: The patient presents casually dressed and with good hygiene, and looks stated age. Patient is sitting, posture is upright, and position is relaxed. Patient appears awake, alert, and responds appropriately and reasonably during interview. Patient is engaged, relates well to interviewer, and emotional facial expression is appropriate to situation and changes appropriately with topic. Patient is cooperative, makes comfortable eye contact, and movements are voluntary, deliberate, coordinated, and smooth and even with no inappropriate movements. Patient makes laryngeal sounds effortlessly and shares conversation appropriately; pace of conversation is appropriate, and stream of talking is fluent; articulation is clear and understandable; word choice is effortless and appropriate for education level; completes sentences, occasionally pausing to think; rate and volume are appropriate for interview and setting. Patient reports mood as euthymic. Patients affect is stable with full variable range, congruent with mood, and appropriate to speech and circumstances. Patient has linear and logical thinking, with no loose associations, tangential thought, thought blocking, concrete thinking, or any other signs of formal thought disorder. Patient denies suicidal and homicidal ideation, and denies hallucinations and delusions. Patient appears to be a reliable historian with sound judgement and good insight into current condition. Patient has no apparent dysfunction in recent or remote memory noted , and no evidence of gross cognitive dysfunction noted at any point during the interview. SUBSTANCE ABUSE BRIEF INTERVENTION: Brief intervention regarding the risks of cannabis, alcohol, cocaine, and hallucinogen abuse is provided to patient with goal to reduce the risk of harm that could result from the continued use of cannabis, alcohol, cocaine, and hallucinogens, with the general aim to investigate the problem, raise awareness of problem, develop a solution with the patient, recommend a specific change or activity, and motivate the patient toward change. Assess substance abuse behavior and give supportive advice about harm reduction, recommend a reduction in hazardous/at-risk consumption patterns, and facilitate referrals for additional specialized treatment with hospice care sales consultant. Intermediate goal is for the patient to quit use and attend outpatient substance abuse treatment. Intervention focus on intermediate goals to allow for more immediate success in the treatment process to keep the patient motivated. Review following with patient: Cannabis use risks: Short- term use: impaired short-term memory, impaired motor coordination, altered judgement, in high doses paranoia and psychosis. Long-term use addiction, diminished life satisfaction and achievement, symptoms of chronic bronchitis, and increased risk of chronic psychosis disorders if predisposition to such disorders. In withdrawal anger, aggression irritability, anxiety and nervousness, decreased appetite or weight loss, restlessness, and sleep difficulties with strange dreams. Alcohol/Binge Drinking risks: short-term: injuries, violence, alcohol poisoning, risky sexual behaviors. Long-term: high blood pressure, stroke, liver disease, digestive problems, cancer, learning and memory problems, depression and anxiety, social problems, and alcohol dependence. Cocaine use risks: Short-term: erratic and violent behavior, panic attacks, paranoia, psychosis; heart rhythm problems, heart attack; stroke, seizure, coma. Long-term: Loss of sense of smell, nosebleeds, nasal damage and trouble swallowing from snorting; infection and of bowel tissue from decreased blood flow; poor nutrition and weight loss; lung damage from smoking. Hallucinogen use risks: paranoia, psychosis, speech problems, memory loss, weight loss, anxiety, and depression and suicidal thoughts. PATIENTS RESPONSE TO INTERVENTION: Patient reports she does not think her substance abuse is [id number] and reports it does probably exacerbate her symptoms, "Probably makes them more dramatic. I do need to slow down in that regard. I do plan on slowing down." Patient reports she is not interested in substance abuse treatment at this time. Referrals will be provided for patient. OUTPATIENT SUBSTANCE ABUSE TREATMENT: Patient referred to outpatient provider and treatment for continued treatment related to substance abuse. - Time Spent With Patient Time Spent With Patient: 30 minutes, met with patient, patient and patient's parents by phone, and patient and treatment team. - Pending Discharge Pending Discharge Within 24 Hours: Yes Pending Discharge Within 48 Hours: No Pending Discharge Date: 09/10/18 Pending Discharge Time: 11:00 ICD10 Worksheet Patient Problems: Problems Problem Status Onset Adjustment disorder Acute Adjustment disorder with mixed anxiety and depressed mood Acute Cannabis use disorder, moderate, dependence Acute Cocaine abuse Acute Stimulant use disorder Acute Major depressive disorder, recurrent episode, severe with anxious distress Chronic
[2018-09-09] MEDS ORDERED: ACYCLOVIR 400 MG TAB PO ONE (15:08)
[2018-09-09] MEDS: DOCOSANOL 2 GM CREAM TP SCH ×3 (15:29→21:17)
[2018-09-10 06:48] VITALS: BP 120/77
[2018-09-10] MEDS: DOCOSANOL 2 GM CREAM TP SCH (07:10)
[2018-09-10] MEDS: SERTRALINE HCL 50 MG TAB PO SCH (08:08)
--- NOTE | 2018-09-10 12:18 | BDS ---
REASON FOR ADMISSION: From the ED note dated 09/07/2018, the patient, a student at the [employer] originally from [place], presented to the emergency department by urging of her friends due to a concern for her own well-being as she has had worsening severe depression over the past several weeks. The patient admitted to excessive alcohol as well as Ativan use. The patient reported she did not feel safe at home. The patient reported during the [facility] evaluation, she had a plan to overdose on her pills. The patient was admitted involuntarily on an M1 hold due to being a danger to herself. The patient was admitted for safety, crisis stabilization, and medication management. ADMITTING DIAGNOSES: 1. Major depressive disorder, recurrent episode, severe with anxious distress. 2. Adjustment disorder with mixed anxiety and depressed mood. 3. Substance-induced mood disorder, suspected. 4. Alcohol use disorder, moderate, suspected. 5. Benzodiazepine abuse, suspected. 6. Cocaine abuse. 7. Cannabis use disorder, moderate. 8. Stimulant use disorder. ADMISSION PHYSICAL EXAM: The patient was seen for an internal medicine consultation on 09/08, for medical clearance for inpatient psychiatric hospitalization and treatment. The patient was medically cleared for inpatient psychiatric hospitalization and treatment. For further details, please refer to consultation note dated 09/08/2018. ADMISSION LABS: CBC from 09/07/2018, was within normal limits. BMP from 2017, within normal limits. Hemoglobin A1c from 09/07/2018, was 4.8 and within normal limits. Liver function tests from 09/07/2018, within normal limits except total protein was elevated at 8.3. Lipid panel from 09/07/2018, within normal limits except triglycerides were elevated at 218, LDL cholesterol calculated was low at 45, VLDL cholesterol was elevated at 44, non-HDL cholesterol was low at 89, HDL cholesterol was elevated at 108, and LDL/HDL ratio was low at 0.42. TSH from 09/07/2018, was within normal limits at 1.640. Urine test from 09/07/2018, was negative. Toxicology screen from , was non-negative for marijuana, negative for all other substances tested, was negative for ethyl alcohol. MAJOR PROCEDURES OR TESTS: None. HOSPITAL COURSE: The most prominent symptoms and behaviors while the patient was here were reports of moderate anxiety and moderate depression. Treatment modalities utilized were milieu and group therapy. Sertraline 50 mg p.o. daily was started to target anxiety and depression symptoms, was tolerated with no report of side effects. The patient has improved considerably with no signs of psychiatric symptoms and no psychiatric symptoms expressed at time of discharge. The patient reports she has improved since admission. States to be in stable condition. Feels safe to discharge, and she contracts for safety. The patient's response to treatment was good. There were no adverse or unexpected results of treatment. The patient was safe throughout her stay, active in treatment, attended and engaged in groups, and was appropriate with staff and other patients. The patient met with the treatment team prior to discharge to assess readiness to discharge and review discharge plan. The treatment team consensus is the patient is in stable condition, has a safe discharge plan, and is ready to discharge today. CONDITION AT DISCHARGE: Patient is in stable condition and is no longer a danger to self or others, and is not gravely disabled due to mental illness. Patient is no longer in need of inpatient level of care, and can be safely and effectively treated within the community. The patients level of risk at time of discharge is low. MSE: The patient is casually dressed and with good hygiene , and looks stated age. Patient is sitting, posture is upright, and position is relaxed. Patient appears awake, alert, and responds appropriately and reasonably during interview. Patient is engaged, relates well to interviewer, and emotional facial expression is appropriate to situation and changes appropriately with topic. Patient is cooperative, makes comfortable eye contact , and movements are voluntary, deliberate, coordinated, and smooth and even with no inappropriate movements. Patient makes laryngeal sounds effortlessly and shares conversation appropriately; pace of conversation is appropriate, and stream of talking is fluent; articulation is clear and understandable; word choice is effortless and appropriate for education level; completes sentences, occasionally pausing to think; rate and volume are appropriate for interview and setting. Patient reports mood as euthymic. Patients affect is stable with full variable range, congruent with mood, and appropriate to speech and circumstances. Patient has linear and logical thinking, with no loose associations, tangential thought, thought blocking, concrete thinking, or any other signs of formal thought disorder. Patient denies suicidal and homicidal ideation, and denies hallucinations and delusions. Patient appears to be a reliable historian with sound judgement and good insight into current condition. Patient has no apparent dysfunction in recent or remote memory noted , and no evidence of gross cognitive dysfunction noted at any point during the interview. DISCHARGE DIAGNOSES: 1. Major depressive disorder, recurrent episode, severe with anxious distress. 2. Adjustment disorder with mixed anxiety and depressed mood. 3. Substance-induced mood disorder, suspected. 4. Alcohol use disorder, moderate, suspected. 5. Benzodiazepine abuse, suspected. 6. Cocaine abuse. 7. Cannabis use disorder, moderate. 8. Stimulant use disorder. CURRENT MEDICATIONS: After reviewing options, risks, and benefits with the patient, the patient agrees to continue sertraline 50 mg p.o. daily for anxiety and depression. The patient requests prescription for this medication at time of discharge. A prescription for 30 days is provided. The prescription is reviewed with the patient at time of discharge to ensure accuracy and patient understanding. DISPOSITION: The patient left hospital independently and voluntarily with her friend and plans to return home to her home in [place] where she lives with roommates. FOLLOWUP: import coordinator reports the appropriate outpatient follow-up services have been established and outpatient appointments have been scheduled. The patient received written instructions with times and dates of outpatient follow-up appointments. The following follow-up recommendations were provided to the patient at discharge: Continue psychotropic medications as prescribed and attend appointments as scheduled. Report any side effects to a psychiatric outpatient provider, a primary care provider, or other health child care center administrator. Address any questions or problems concerning the psychotropic medications with a psychiatric outpatient provider, a primary care provider, or other health child care center administrator. Contact [facility] or [facility], or go to the nearest emergency room, if you are ever a danger to yourself/others, or unable to care for yourself. As soon as possible, establish a routine medication management treatment with a psychiatric provider, establish routine therapy appointments, and follow-up with a primary care provider. SUBSTANCE ABUSE BRIEF INTERVENTION: Brief intervention regarding the risks of cannabis, alcohol, cocaine, and hallucinogen abuse is provided to patient with goal to reduce the risk of harm that could result from the continued use of cannabis, alcohol, cocaine, and hallucinogens, with the general aim to investigate the problem, raise awareness of problem, develop a solution with the patient, recommend a specific change or activity, and motivate the patient toward change. Assess substance abuse behavior and give supportive advice about harm reduction, recommend a reduction in hazardous/at-risk consumption patterns, and facilitate referrals for additional specialized treatment with skin care instructor. Intermediate goal is for the patient to quit use and attend outpatient substance abuse treatment. Intervention focus on intermediate goals to allow for more immediate success in the treatment process to keep the patient motivated. Review following with patient: Cannabis use risks: Short- term use: impaired short-term memory, impaired motor coordination, altered judgement, in high doses paranoia and psychosis. Long-term use addiction, diminished life satisfaction and achievement, symptoms of chronic bronchitis, and increased risk of chronic psychosis disorders if predisposition to such disorders. In withdrawal anger, aggression irritability, anxiety and nervousness, decreased appetite or weight loss, restlessness, and sleep difficulties with strange dreams. Alcohol/Binge Drinking risks: short-term: injuries, violence, alcohol poisoning, risky sexual behaviors. Long-term: high blood pressure, stroke, liver disease, digestive problems, cancer, learning and memory problems, depression and anxiety, social problems, and alcohol dependence. Cocaine use risks: Short-term: erratic and violent behavior, panic attacks, paranoia, psychosis; heart rhythm problems, heart attack; stroke, seizure, coma. Long-term: Loss of sense of smell, nosebleeds, nasal damage and trouble swallowing from snorting; infection and of bowel tissue from decreased blood flow; poor nutrition and weight loss; lung damage from smoking. Hallucinogen use risks: paranoia, psychosis, speech problems, memory loss, weight loss, anxiety, and depression and suicidal thoughts. PATIENTS RESPONSE TO INTERVENTION: Patient reports she does not think her substance abuse is [id number] and reports it does probably exacerbate her symptoms, "Probably makes them more dramatic. I do need to slow down in that regard. I do plan on slowing down and stopping the hard stuff." Patient reports she is not interested in substance abuse treatment at this time. Referrals will be provided for patient. OUTPATIENT SUBSTANCE ABUSE TREATMENT: Patient referred to outpatient provider and treatment for continued treatment related to substance abuse. LEGAL COURSE: The patient was admitted on an M1 hold for involuntary inpatient psychiatric hospitalization. The patient was discharged today independently and voluntarily. ATTITUDE AT TIME OF DISCHARGE: The patients attitude was positive at time of discharge, and patient reports looking forward to discharging today. The patient reports she feels safe to discharge, is no longer a danger to herself or others, is in stable condition, and contracts for safety. Patient states she will continue medications as prescribed, and establish medication management treatment with an outpatient provider after discharge. Patient reports she understands the information that has been provided to her, and she understands, accepts, and agrees to psychotropic medications. Patient describes internal protective factors as the coping skills she has learned while hospitalized here, and she plans to continue to practice these coping skills after discharge. FAMILY MEETING: Family meeting yesterday to review discharge plan. LABS AND STUDIES: There were no pending labs or studies at time of discharge. ADVANCE DIRECTIVES: There were no advance directives on file, and the patient was full code during this hospitalization. The following psychotropic medication treatment informed consent and recommendations were provided to the patient at time of discharge. Patient reports she understands, accepts, and agrees to the information that has been provided. PSYCHOTROPIC MEDICATION TREATMENT INFORMED CONSENT and RECOMMENDATIONS: Review nature of condition, diagnosis, and prognosis. Review nature and purpose of psychotropic medication treatment. Review type of psychotropic medications being prescribed. Review risk and benefits of psychotropic medication treatment. Review probable length of time will need to take medications. Review risk and benefits of not undergoing psychotropic medication treatment. Review alternative treatments to psychotropic medications. Review psychotropic medications contraindications, side effects, and importance of reporting any side effects to a psychiatric provider, primary care provider, or other health child care center administrator. Review importance of her asking a psychiatric provider or primary care provider any questions or problems concerning the psychotropic medications. Review importance of reporting to a psychiatric provider, primary care provider, or other health child care center administrator if she plans to or becomes . Review safety plan and the importance to contact [facility] or [facility] , or go to the nearest emergency room, if ever a danger to yourself/others, or unable to care for yourself. Recommend upon discharge to establish routine medication management treatment with a psychiatric provider, establish routine therapy appointments, and follow-up with a primary care provider. Verify patient understands, accepts, and agrees to the information that has been provided. SUICIDE ASSESSMENT FIVE-STEP EVALUATION AND TRIAGE (1) RISK FACTORS: (a) Suicidal behavior: no history of attempts (b) Current/past psychiatric disorders: Major Depressive Disorder; Polysubstance Abuse (c) Oswald symptoms: none expressed or exhibited at time of discharge (d) Family history: none (e) Precipitants/Stressors/Interpersonal: none (f) Change in treatment: discharge from psychiatric hospital (g) Access to firearms: none (2) PROTECTIVE FACTORS: (a) Internal: coping skills learned while hospitalized (b) External: family, friends, and future (3) SUICIDAL INQUIRY: (a) Ideation: none (b) Plan: none (c) Behaviors: none; patient was safe throughout stay with no suicidal or parasuicidal behaviors (d) Intent: none (4) RISK LEVEL: Low: modifiable risk factors, strong protective factors; no suicidal or self-injurious ideation. Intervention: treatment plan to reduce symptoms including medications and therapy, provided emergency/crisis numbers, and established follow-up plan. /[id number]
== END 2018-09-10 08:50 | disposition home or self-care (01) | DRG 885 ==
LOC: BBEH 23:10
PROVIDERS: ADMIT Psychiatry & Neurology Psychiatry; ATTEND Psychiatry & Neurology Psychiatry
DX: F33.3 Major depressive disorder, recurrent, severe with psychotic symptoms (principal); F43.23 Adjustment disorder with mixed anxiety and depressed mood; F13.159 Sedative, hypnotic or anxiolytic abuse with sedative, hypnotic or anxiolytic-induced psychotic disorder, unspecified; F14.159 Cocaine abuse with cocaine-induced psychotic disorder, unspecified; F12.159 Cannabis abuse with psychotic disorder, unspecified; F15.159 Other stimulant abuse with stimulant-induced psychotic disorder, unspecified; Z72.89 Other problems related to lifestyle; F17.200 Nicotine dependence, unspecified, uncomplicated
CPT/HCPCS: 80305; G0480